=== PATIENT | male | born 1930 | race Caucasian/White ===

== ENCOUNTER 2019-01-31 10:22 | Day surgery (SDC) | payer MEDICARE, OTHER ==
[~2019-01-31] VITALS: Ht 200.7 cm; Wt 108.6 kg
[2019-01-31] MEDS ORDERED: FENTANYL 12MCG TD (10:55)
[2019-01-31] MEDS ORDERED: ANTIVERT 25MG25 MG PO (11:01)
[2019-01-31] MEDS ORDERED: SYNTHROID0.2 MG/TAB PO (11:01)
[2019-01-31] MEDS ORDERED: ALDACTONE50 MG PO (11:02)
[2019-01-31] MEDS ORDERED: VITAMIND3 5000 PO (11:02)
[2019-01-31] MEDS ORDERED: ROXICODONE 55 MG/TAB PO (11:02)
[2019-01-31] MEDS ORDERED: ASPIRIN 81M81 MG/TA2 PO (11:03)
[2019-01-31] MEDS ORDERED: PEPCID 20MG TAB20 MG PO (11:03)
[2019-01-31] MEDS ORDERED: K-DUR20 MEQ PO (11:03)
[2019-01-31] MEDS ORDERED: NEURONTIN300 MG/CAP PO (11:04)
[2019-01-31] MEDS ORDERED: TYLENOL 500MG500 MG PO (11:04)
[2019-01-31] MEDS ORDERED: COLACE 100100 MG/CAP PO (11:04)
[2019-01-31] MEDS ORDERED: ATIVAN 0.50.5 MG/TAB PO (11:05)
[2019-01-31] MEDS ORDERED: ZOCOR 40MG40 MG PO (11:05)
[2019-01-31] MEDS ORDERED: FLOMAX 0.40.4 MG/CAP PO (11:05)
[2019-01-31] MEDS ORDERED: ALBUTEROL0.83 MG/ML IH (11:06)
[2019-01-31] MEDS ORDERED: LASIX 80MG TABL80 MG PO (11:06)
[2019-01-31 11:10] VITALS: BP 123/57; PULSE 97; TEMP 99.6
[2019-01-31 12:32] VITALS: BP 109/57; PULSE 96
--- NOTE | 2019-01-31 12:32 | NUR ---
Patient arrives to [facility] for recovery. He is sitting up on cart. Alert and oriented. He denies pain or SOB. His procedure site is covered with a clean, dry, intact dressing. Monitoring applied - VSS and WNL on room air.
[2019-01-31 12:45] VITALS: BP 90/73; PULSE 91
--- NOTE | 2019-01-31 12:45 | NUR ---
Patient resting in room. Drinking water. Chatting with halfway staff. Bandaid clean, dry, intact. BP is slightly lower, patient asymptomatic. Will continue to monitor.
--- NOTE | 2019-01-31 12:46 | NUR ---
Radiology report for CXR received via telephone from radiologist and relayed to Dr. Kirk at this time. Dr. Kirk says he reviewed the images and patient may discharge to retirement.
[2019-01-31 13:00] VITALS: BP 101/47; PULSE 91
--- NOTE | 2019-01-31 13:00 | NUR ---
VSS and WNL on room air. Bandaid remains clean, dry, intact.
[2019-01-31 13:05] LABS: PLEURAL FLUID RBC 32000 /mm3 (0-0); PLEURAL FLUID WBC 689 /mm3
[2019-01-31 13:13] VITALS: BP 122/63; PULSE 93
--- NOTE | 2019-01-31 13:16 | NUR ---
Patient has met discharge criteria. Discharge instructions discussed with patient and correction staff, denies any questions, and verbalizes understanding. Assisted to change to clothing and into personal wheelchair. Escorted to exit via wheelchair. Discharged to correction in care of correction staff at 1316.
[2019-01-31 13:19] LABS: GLUCOSE,PLEURAL FLUID 116 mg/dL; TOTAL PROTEIN,PLEURAL FLUID 4.4 gm/dL
[2019-01-31 13:23] LABS: PLEURAL FLUID APPEARANCE CLOUDY; PLEURAL FLUID COLOR RED
== END 2019-01-31 13:16 | disposition home or self-care (01) ==
LOC: SDCO 10:22
PROVIDERS: Internal Medicine Pulmonary Disease
DX: R91.8 Other nonspecific abnormal finding of lung field (principal); J90 Pleural effusion, not elsewhere classified; R09.02 Hypoxemia; R06.02 Shortness of breath; Z87.891 Personal history of nicotine dependence; Z80.1 Family history of malignant neoplasm of trachea, bronchus and lung; Z85.828 Personal history of other malignant neoplasm of skin; Z85.51 Personal history of malignant neoplasm of bladder; N40.0 Benign prostatic hyperplasia without lower urinary tract symptoms; I25.10 Atherosclerotic heart disease of native coronary artery without angina pectoris; K21.9 Gastro-esophageal reflux disease without esophagitis; E87.6 Hypokalemia; J44.9 Chronic obstructive pulmonary disease, unspecified; G47.30 Sleep apnea, unspecified; E03.9 Hypothyroidism, unspecified; E78.5 Hyperlipidemia, unspecified; G89.29 Other chronic pain; Z79.899 Other long term (current) drug therapy; Z79.82 Long term (current) use of aspirin
CPT/HCPCS: 19804